=== PATIENT | female | born 1995 | race African-American/Black ===

== ENCOUNTER 2025-04-11 11:42 | Emergency (ER) | payer SELFPAY ==
[~2025-04-11] VITALS: Ht 160 cm; Wt 80.3 kg
[2025-04-11 12:10] VITALS: BP 98/61; TEMP 98.2
[2025-04-11 13:10] VITALS: O2SAT 99
== END 2025-04-11 13:11 | disposition home or self-care (01) ==
LOC: ER 11:42
DX: S20.229A Contusion of unspecified back wall of thorax, initial encounter (principal); V89.2XXA Person injured in unspecified motor-vehicle accident, traffic, initial encounter; Y93.89 Activity, other specified; Y92.410 Unspecified street and highway as the place of occurrence of the external cause; Y99.8 Other external cause status